=== PATIENT | male | born 1985 | race Caucasian/White ===

== ENCOUNTER → 2018-10-19 | Outpatient (CLI) | payer OTHER ==
[~2018-10-19] MED LIST: ATIVAN 0.50.5 MG/TAB PO; FOLIC ACID 11 MG/TA1 PO; MULTI VITAMINS1 TAB PO; PEPCID 20MG TAB20 MG PO; THIAMINE 1100 MG/TAB PO; TOPROL XL100 MG PO
[2018-10-19 17:21] LABS: ALBUMIN 4.6 gm/dL (3.5-5.0); BILIRUBIN,TOTAL 0.6 mg/dL (0.0-1.0); CREATININE, serum 0.62 (0.66-1.25); POTASSIUM 4.5 mmol/L (3.4-5.0); TOTAL PROTEIN 8.7 gm/dL (6.4-8.2)
== END ==
LOC: ZCOL.LAB 16:53
PROVIDERS: Family Medicine
DX: K70.10 Alcoholic hepatitis without ascites (principal)

== ENCOUNTER 2022-03-08 14:52 | Inpatient (IN) | payer OTHER ==
[~2022-03-08] VITALS: Ht 180.3 cm; Wt 90.5 kg
[2022-03-08 16:38] LABS: BASO # 0.1 K/mm3 (0.0-0.2); BASO % 0.6 % (0.0-2.0); GRAN # 7.9 K/mm3 (1.4-6.5); GRAN % 81.5 % (42.2-75.2); HEMATOCRIT 45.4 % (42.0-52.0); HEMOGLOBIN 16.4 g/dl (13.5-18.0); LYMPH # 0.9 K/mm3 (1.2-3.4); MEAN CELL VOLUME 89 fl (80.0-100.0); MEAN CORPUSCULAR HEMOGLOBIN 32 pg (27-31); MEAN CORPUSCULAR HGB CONC 36 g/dl (33.0-37.0); MEAN PLATELET VOLUME 9.4 fl (7.4-10.4); MONO # 0.8 K/mm3 (0.1-0.6); MONO % 8.6 % (1.7-9.3); PLATELET COUNT 315 K/mm3 (130-400); REDCELL DISTRIBUTION WIDTH-CV 13.3 % (11.5-14.5)
[2022-03-08 17:03] LABS: ALBUMIN 5.1 gm/dL (3.5-5.0); BILIRUBIN,TOTAL 3.4 mg/dL (0.2-1.2); CALCIUM 10.5 mg/dL (8.4-10.2); CREATININE, serum 2.22 mg/dL (0.72-1.25); POTASSIUM 4.3 mmol/L (3.5-4.5); TOTAL PROTEIN 9.3 gm/dL (6.2-8.1)
[2022-03-08 18:53] LABS: ARTERIAL BLD GAS O2 SATURATION 97.1 % (92-100); ARTERIAL BLD GAS TCO2 CT 21.4; ARTERIAL BLOOD GAS BASE EXCESS -1.6 (-2-2); ARTERIAL BLOOD GAS HCO3 20.6 meq/L (22-26); ARTERIAL BLOOD GAS PCO2 28.5 mmHg (35-45); ARTERIAL BLOOD GAS PO2 88.8 mmHg (80-100); ARTERIAL BLOOD GAS pH 7.48 (7.35-7.45)
[2022-03-08] MEDS ORDERED: PRINIVIL40 MG PO (19:46)
[2022-03-08 21:19] VITALS: BP 140/81; PULSE 93; TEMP 98.3
[2022-03-09] VITALS (8 sets, daily range): BP systolic 125–141; BP diastolic 79–99; PULSE 66–84; TEMP 98–98.7
[2022-03-09 06:40] LABS: BASO # 0.1 K/mm3 (0.0-0.2); BASO % 0.9 % (0.0-2.0); EOS # 0.1 K/mm3 (0.0-0.7); EOS % 1.4 % (0.0-4.0); GRAN % 59.4 % (42.2-75.2); HEMATOCRIT 40.2 % (42.0-52.0); LYMPH # 1.6 K/mm3 (1.2-3.4); LYMPH % 23.9 % (20.0-51.0); MEAN CORPUSCULAR HGB CONC 35 g/dl (33.0-37.0); MEAN PLATELET VOLUME 10.1 fl (7.4-10.4); MONO # 0.9 K/mm3 (0.1-0.6); MONO % 13.9 % (1.7-9.3); REDCELL DISTRIBUTION WIDTH-CV 13.4 % (11.5-14.5)
[2022-03-09 06:42] LABS: MEAN CELL VOLUME 94 fl (80.0-100.0); MEAN CORPUSCULAR HEMOGLOBIN 33 pg (27-31); PLATELET COUNT 207 K/mm3 (130-400)
[2022-03-09 06:44] LABS: HEMOGLOBIN 14.2 g/dl (13.5-18.0)
[2022-03-09 06:52] LABS: CREATININE, serum 1.18 mg/dL (0.72-1.25); POTASSIUM 4.3 mmol/L (3.5-4.5)
[2022-03-09 06:53] LABS: ALBUMIN 4.1 gm/dL (3.5-5.0); BILIRUBIN,TOTAL 3.4 mg/dL (0.2-1.2); CALCIUM 8.7 mg/dL (8.4-10.2); MAGNESIUM 2.8 mg/dL (1.6-2.6); TOTAL PROTEIN 7.5 gm/dL (6.2-8.1)
[2022-03-10 03:57] VITALS: BP 130/89; PULSE 63; TEMP 98
[2022-03-10 05:35] LABS: BASO # 0.1 K/mm3 (0.0-0.2); BASO % 1.6 % (0.0-2.0); EOS # 0.2 K/mm3 (0.0-0.7); EOS % 3.5 % (0.0-4.0); GRAN % 47.9 % (42.2-75.2); LYMPH # 1.4 K/mm3 (1.2-3.4); LYMPH % 33.7 % (20.0-51.0); MEAN CELL VOLUME 94 fl (80.0-100.0); MEAN CORPUSCULAR HGB CONC 35 g/dl (33.0-37.0); MEAN PLATELET VOLUME 9.8 fl (7.4-10.4); MONO # 0.5 K/mm3 (0.1-0.6); MONO % 12.6 % (1.7-9.3); PLATELET COUNT 145 K/mm3 (130-400); RED BLOOD COUNT 3.74 M/mm3 (4.20-5.60); REDCELL DISTRIBUTION WIDTH-CV 12.8 % (11.5-14.5)
[2022-03-10 05:40] LABS: HEMATOCRIT 35.3 % (42.0-52.0); HEMOGLOBIN 12.2 g/dl (13.5-18.0); MEAN CORPUSCULAR HEMOGLOBIN 33 pg (27-31)
[2022-03-10 05:51] LABS: CALCIUM 8.2 mg/dL (8.4-10.2); CREATININE, serum 0.81 mg/dL (0.72-1.25); POTASSIUM 3.9 mmol/L (3.5-4.5)
[2022-03-10 07:26] VITALS: BP 134/99; PULSE 71; TEMP 98.4
[2022-03-10] MEDS ORDERED: THIAMINE 1100 MG/TAB PO (10:38)
[2022-03-10 11:51] VITALS: BP 137/96; PULSE 71; TEMP 98.6
== END 2022-03-10 13:00 | disposition home or self-care (01) | DRG 897 ==
LOC: COL.ER 14:52 → SURG 18:40
PROVIDERS: Emergency Medicine; Student in an Organized Health Care Education/Training Program; ADMIT Internal Medicine
DX: F10.139 Alcohol abuse with withdrawal, unspecified (principal); N17.9 Acute kidney failure, unspecified; E87.2 Acidosis; G40.509 Epileptic seizures related to external causes, not intractable, without status epilepticus; I10 Essential (primary) hypertension; K76.0 Fatty (change of) liver, not elsewhere classified
CPT/HCPCS: G0378; J1644; J2060; J2405; J2550; J3411; J3475; J7030

== ENCOUNTER 2022-04-28 12:48 | Emergency (ER) | payer OTHER ==
[~2022-04-28] VITALS: Ht 177.8 cm; Wt 90.9 kg
[~2022-04-28 12:48] MED LIST changes: +PRINIVIL40 MG PO
[2022-04-28 13:02] VITALS: TEMP 97.7
[2022-04-28 17:09] LABS: BASO # 0.1 K/mm3 (0.0-0.2); EOS % 0.1 % (0.0-4.0); GRAN # 7.6 K/mm3 (1.4-6.5); GRAN % 76.7 % (42.2-75.2); HEMATOCRIT 45.8 % (42.0-52.0); HEMOGLOBIN 16.5 g/dl (13.5-18.0); LYMPH # 1.3 K/mm3 (1.2-3.4); LYMPH % 13.4 % (20.0-51.0); MEAN CELL VOLUME 91 fl (80.0-100.0); MEAN CORPUSCULAR HEMOGLOBIN 33 pg (27-31); MEAN CORPUSCULAR HGB CONC 36 g/dl (33.0-37.0); MEAN PLATELET VOLUME 9.8 fl (7.4-10.4); MONO # 0.8 K/mm3 (0.1-0.6); MONO % 8.4 % (1.7-9.3); PLATELET COUNT 244 K/mm3 (130-400); RED BLOOD COUNT 5.02 M/mm3 (4.20-5.60); REDCELL DISTRIBUTION WIDTH-CV 12.7 % (11.5-14.5)
[2022-04-28 17:22] LABS: ALANINE AMINOTRANSFERASE 140 U/L (0-55); ALBUMIN 4.6 gm/dL (3.5-5.0); ALKALINE PHOSPHATASE 87 U/L (40-150); ANION GAP 20 mmol/L (7-16); AST,SGOT 281 U/L (5-34); BILIRUBIN,TOTAL 3.7 mg/dL (0.2-1.2); BLOOD UREA NITROGEN 14 mg/dL (9-21); CARBON DIOXIDE 21 mmol/L (22-29); CHLORIDE 92 mmol/L (98-107); GLUCOSE 101 mg/dL (70-99); POTASSIUM 4.2 mmol/L (3.5-4.5); SODIUM 133 mmol/L (136-145)
[2022-04-28 17:26] LABS: ALCOHOL(ethanol),MEDICAL < 10 mg/dL (0-10)
[2022-04-28] MEDS ORDERED: VALIUM 10MG10 MG/TAB PO (19:11)
[2022-04-28 19:50] VITALS: BP 140/91; PULSE 100
[2022-04-28] MEDS ORDERED: ZOFRAN ODT4 MG PO (19:59)
== END 2022-04-28 19:50 | disposition home or self-care (01) ==
LOC: COL.ER 12:48
PROVIDERS: Family Medicine
DX: F10.239 Alcohol dependence with withdrawal, unspecified (principal); Z28.310 Unvaccinated for COVID-19
CPT/HCPCS: J2060; J2405; J3411; J7030; J7120